=== PATIENT | female | born 1945 | race Two or more races ===

== ENCOUNTER 2021-08-12 08:12 | Outpatient (CLI) | payer OTHER | END 2021-08-12 08:13 | disposition home or self-care (01) | LOC: LAB 08:12 | PROVIDERS: ATTEND Internal Medicine | DX: I34.0 Nonrheumatic mitral (valve) insufficiency (principal); I87.2 Venous insufficiency (chronic) (peripheral); I67.2 Cerebral atherosclerosis ==

== ENCOUNTER 2022-09-05 08:48 | Outpatient (CLI) | payer OTHER | END 2022-09-05 08:49 | disposition home or self-care (01) | LOC: LAB 08:48 | PROVIDERS: ATTEND Internal Medicine | DX: I34.0 Nonrheumatic mitral (valve) insufficiency (principal); I87.2 Venous insufficiency (chronic) (peripheral); I67.2 Cerebral atherosclerosis; I70.213 Atherosclerosis of native arteries of extremities with intermittent claudication, bilateral legs; E78.00 Pure hypercholesterolemia, unspecified; E04.2 Nontoxic multinodular goiter; E03.8 Other specified hypothyroidism; G47.33 Obstructive sleep apnea (adult) (pediatric); R94.5 Abnormal results of liver function studies; K57.30 Diverticulosis of large intestine without perforation or abscess without bleeding; A09 Infectious gastroenteritis and colitis, unspecified; R31.29 Other microscopic hematuria; B00.9 Herpesviral infection, unspecified; M81.0 Age-related osteoporosis without current pathological fracture; M54.50 Low back pain, unspecified; M51.9 Unspecified thoracic, thoracolumbar and lumbosacral intervertebral disc disorder; M51.36 Other intervertebral disc degeneration, lumbar region; M50.30 Other cervical disc degeneration, unspecified cervical region; M41.9 Scoliosis, unspecified; M1A.00X0 Idiopathic chronic gout, unspecified site, without tophus (tophi); M25.571 Pain in right ankle and joints of right foot; M11.29 Other chondrocalcinosis, multiple sites; M67.471 Ganglion, right ankle and foot; M21.611 Bunion of right foot; M06.4 Inflammatory polyarthropathy; R41.3 Other amnesia; L30.9 Dermatitis, unspecified; N60.21 Fibroadenosis of right breast ==

== ENCOUNTER 2023-02-20 07:48 | Outpatient (CLI) | payer OTHER | END 2023-02-20 07:55 | disposition home or self-care (01) | LOC: LAB 07:48 | PROVIDERS: ATTEND Internal Medicine | DX: I34.0 Nonrheumatic mitral (valve) insufficiency (principal); I87.2 Venous insufficiency (chronic) (peripheral); I67.2 Cerebral atherosclerosis; I70.213 Atherosclerosis of native arteries of extremities with intermittent claudication, bilateral legs; E04.2 Nontoxic multinodular goiter; E03.8 Other specified hypothyroidism; G47.33 Obstructive sleep apnea (adult) (pediatric); R94.5 Abnormal results of liver function studies; K57.30 Diverticulosis of large intestine without perforation or abscess without bleeding; A09 Infectious gastroenteritis and colitis, unspecified; R31.29 Other microscopic hematuria; B00.9 Herpesviral infection, unspecified; M81.0 Age-related osteoporosis without current pathological fracture; M51.9 Unspecified thoracic, thoracolumbar and lumbosacral intervertebral disc disorder; M51.36 Other intervertebral disc degeneration, lumbar region; M50.30 Other cervical disc degeneration, unspecified cervical region; M41.9 Scoliosis, unspecified; M1A.00X0 Idiopathic chronic gout, unspecified site, without tophus (tophi); M25.571 Pain in right ankle and joints of right foot; M11.29 Other chondrocalcinosis, multiple sites; M67.471 Ganglion, right ankle and foot; M21.611 Bunion of right foot; M06.4 Inflammatory polyarthropathy; M79.672 Pain in left foot; M72.2 Plantar fascial fibromatosis; M67.879 Other specified disorders of synovium and tendon, unspecified ankle and foot; R41.3 Other amnesia; L30.9 Dermatitis, unspecified; N60.21 Fibroadenosis of right breast; N60.22 Fibroadenosis of left breast; E55.9 Vitamin D deficiency, unspecified; R42 Dizziness and giddiness; Z68.21 Body mass index [BMI] 21.0-21.9, adult; N39.0 Urinary tract infection, site not specified; R73.01 Impaired fasting glucose; E53.8 Deficiency of other specified B group vitamins; Z12.11 Encounter for screening for malignant neoplasm of colon ==

== ENCOUNTER → 2023-02-27 10:43 | Outpatient (CLI) | payer OTHER | END | disposition home or self-care (01) | LOC: LAB 10:43 | PROVIDERS: ATTEND Internal Medicine | DX: Z12.11 Encounter for screening for malignant neoplasm of colon (principal) ==

== ENCOUNTER 2023-07-31 09:15 | Outpatient (CLI) | payer OTHER ==
[2023-07-31 12:42] LABS: HEMATOCRIT 40.7 % (36.0-45.00); HEMOGLOBIN 13.6 g/dL (12.0-15.00); MEAN CELL VOLUME 92.9 fL (80.00-100.00); MEAN CORPUSCULAR HGB CONC 33.4 g/dl (32.0-36.0); PLATELET COUNT 295 K/uL (150-450); RED BLOOD COUNT 4.39 M/uL (4.00-6.00); RED CELL DISTRIBUTION WIDTH 13.9 % (11.5-14.5)
[2023-07-31 12:47] LABS: URINE APPEARANCE Clear; URINE BILIRRUBIN Negative (NEGATIVE); URINE BLOOD Negative; URINE COLOR Yellow; URINE GLUCOSE Negative (NEGATIVE); URINE LEUKOCYTE Negative; URINE NITRATE Negative; URINE PROTEIN Negative (NEGATIVE); URINE UROBILINOGEN 0.2 E.U./dl
[2023-07-31 12:51] LABS: URINE RBC 22.1 uL (0.0-20.8); URINE WBC 2.9 uL (0.0-23.2)
[2023-07-31 13:17] LABS: URINE BACTERIA 3.7 uL (0.0-1933); URINE EPITHELIAL CELLS 0.3 uL (0.0-38.8)
[2023-07-31 13:22] LABS: ALBUMIN 3.9 gm/dL (3.4-5.0); BILIRUBIN TOTAL 0.52 mg/dL (0.3-1.2); CALCIUM 9.7 mg/dL (8.5-10.1); CHOL HDL RATIO 2.1 (0-5.0); CREATININE SERUM 0.82 mg/dL (0.55-1.02); GFR 67.6; GLOBULINA 3.9 G/DL (2.4-3.5); POTASSIUM 4.46 mEq/L (3.5-5.1); TOTAL PROTEIN 7.8 gm/dL (6.4-8.2)
== END 2023-07-31 09:16 | disposition home or self-care (01) ==
LOC: LAB 09:15
PROVIDERS: ATTEND Internal Medicine
DX: I34.0 Nonrheumatic mitral (valve) insufficiency (principal); I87.2 Venous insufficiency (chronic) (peripheral); I67.2 Cerebral atherosclerosis; I70.213 Atherosclerosis of native arteries of extremities with intermittent claudication, bilateral legs; E78.2 Mixed hyperlipidemia; E04.2 Nontoxic multinodular goiter; E03.8 Other specified hypothyroidism; G47.33 Obstructive sleep apnea (adult) (pediatric); R94.5 Abnormal results of liver function studies; K57.30 Diverticulosis of large intestine without perforation or abscess without bleeding; A09 Infectious gastroenteritis and colitis, unspecified; R10.10 Upper abdominal pain, unspecified; R31.29 Other microscopic hematuria; B00.9 Herpesviral infection, unspecified; M81.0 Age-related osteoporosis without current pathological fracture; M51.9 Unspecified thoracic, thoracolumbar and lumbosacral intervertebral disc disorder; M51.36 Other intervertebral disc degeneration, lumbar region; M50.30 Other cervical disc degeneration, unspecified cervical region; M41.9 Scoliosis, unspecified; M1A.00X0 Idiopathic chronic gout, unspecified site, without tophus (tophi); M25.571 Pain in right ankle and joints of right foot; M11.29 Other chondrocalcinosis, multiple sites; M21.611 Bunion of right foot; M06.4 Inflammatory polyarthropathy; M79.672 Pain in left foot; M72.2 Plantar fascial fibromatosis; R41.3 Other amnesia; L30.9 Dermatitis, unspecified; N60.21 Fibroadenosis of right breast; N60.22 Fibroadenosis of left breast; E55.9 Vitamin D deficiency, unspecified; R42 Dizziness and giddiness; Z68.21 Body mass index [BMI] 21.0-21.9, adult; R73.01 Impaired fasting glucose; E53.8 Deficiency of other specified B group vitamins; Z12.11 Encounter for screening for malignant neoplasm of colon

== ENCOUNTER → 2024-09-16 07:27 | Outpatient (CLI) | payer OTHER ==
[2024-09-16 08:58] LABS: HEMATOCRIT 39.7 % (36.0-45.00); HEMOGLOBIN 13.3 g/dL (12.0-15.00); MEAN CELL VOLUME 93.2 fL (80.00-100.00); MEAN CORPUSCULAR HEMOGLOBIN 31.1 pg (27.00-32.0); MEAN CORPUSCULAR HGB CONC 33.4 g/dl (32.0-36.0); PLATELET COUNT 277 K/uL (150-450); RED BLOOD COUNT 4.27 M/uL (4.00-6.00); RED CELL DISTRIBUTION WIDTH 13.6 % (11.5-14.5)
[2024-09-16 09:09] LABS: PH,URINE 6.5 (5.0-8.0); URINE APPEARANCE Clear; URINE BILIRRUBIN Negative (NEGATIVE); URINE BLOOD Negative; URINE COLOR Yellow; URINE GLUCOSE Negative (NEGATIVE); URINE KETONE Negative (NEGATIVE); URINE LEUKOCYTE Negative; URINE NITRATE Negative; URINE PROTEIN Negative (NEGATIVE); URINE UROBILINOGEN 0.2 E.U./dl
[2024-09-16 09:14] LABS: URINE RBC 8.2 uL (0.0-20.8)
[2024-09-16 09:29] LABS: ALBUMIN 3.6 gm/dL (3.4-5.0); BILIRUBIN TOTAL 0.57 mg/dL (0.3-1.2); CALCIUM 9.7 mg/dL (8.5-10.1); CREATININE SERUM 0.74 mg/dL (0.55-1.02); GFR 75.71; GLOBULINA 3.7 G/DL (2.4-3.5); POTASSIUM 4.18 mEq/L (3.5-5.1); TOTAL PROTEIN 7.3 gm/dL (6.4-8.2)
[2024-09-16 09:32] LABS: CHOL HDL RATIO 2.2 (0-5.0); TSH 3.55 uIU/mL (0.358-3.74)
[2024-09-16 09:34] LABS: URINE BACTERIA 2.4 uL (0.0-1933); URINE EPITHELIAL CELLS 0.4 uL (0.0-38.8); URINE WBC 0.3 uL (0.0-23.2)
== END | disposition home or self-care (01) ==
LOC: LAB 07:27
PROVIDERS: ATTEND Internal Medicine
DX: E78.2 Mixed hyperlipidemia (principal); E03.8 Other specified hypothyroidism; I34.0 Nonrheumatic mitral (valve) insufficiency; I36.1 Nonrheumatic tricuspid (valve) insufficiency; I45.10 Unspecified right bundle-branch block; I87.2 Venous insufficiency (chronic) (peripheral); I70.213 Atherosclerosis of native arteries of extremities with intermittent claudication, bilateral legs; I67.82 Cerebral ischemia; E04.2 Nontoxic multinodular goiter; G47.33 Obstructive sleep apnea (adult) (pediatric); H10.45 Other chronic allergic conjunctivitis; H04.123 Dry eye syndrome of bilateral lacrimal glands; H25.13 Age-related nuclear cataract, bilateral; H40.003 Preglaucoma, unspecified, bilateral; R94.5 Abnormal results of liver function studies; H35.363 Drusen (degenerative) of macula, bilateral; H35.033 Hypertensive retinopathy, bilateral; H43.813 Vitreous degeneration, bilateral; K57.30 Diverticulosis of large intestine without perforation or abscess without bleeding; A09 Infectious gastroenteritis and colitis, unspecified; R10.10 Upper abdominal pain, unspecified; R31.29 Other microscopic hematuria; N60.21 Fibroadenosis of right breast; N60.22 Fibroadenosis of left breast; B00.9 Herpesviral infection, unspecified; M81.0 Age-related osteoporosis without current pathological fracture; M51.9 Unspecified thoracic, thoracolumbar and lumbosacral intervertebral disc disorder; M51.369 Other intervertebral disc degeneration, lumbar region without mention of lumbar back pain or lower extremity pain; M50.30 Other cervical disc degeneration, unspecified cervical region; M41.9 Scoliosis, unspecified; M1A.00X0 Idiopathic chronic gout, unspecified site, without tophus (tophi); M25.571 Pain in right ankle and joints of right foot; M11.29 Other chondrocalcinosis, multiple sites; M21.611 Bunion of right foot; M06.4 Inflammatory polyarthropathy; M79.672 Pain in left foot; M72.2 Plantar fascial fibromatosis; R41.3 Other amnesia; L30.9 Dermatitis, unspecified; E55.9 Vitamin D deficiency, unspecified; R42 Dizziness and giddiness; Z68.21 Body mass index [BMI] 21.0-21.9, adult; N39.0 Urinary tract infection, site not specified; R73.01 Impaired fasting glucose; D50.8 Other iron deficiency anemias; D52.9 Folate deficiency anemia, unspecified; Z12.11 Encounter for screening for malignant neoplasm of colon

== ENCOUNTER 2025-02-13 09:48 | Outpatient (CLI) | payer OTHER ==
[2025-02-13 10:56] LABS: URINE APPEARANCE Clear; URINE BILIRRUBIN Negative (NEGATIVE); URINE BLOOD Trace; URINE COLOR Yellow; URINE GLUCOSE Negative (NEGATIVE); URINE KETONE Negative (NEGATIVE); URINE LEUKOCYTE Negative; URINE NITRATE Negative; URINE PROTEIN Negative (NEGATIVE); URINE UROBILINOGEN 0.2 E.U./dl
[2025-02-13 11:00] LABS: URINE BACTERIA 4.8 uL (0.0-1933); URINE RBC 5.5 uL (0.0-20.8)
[2025-02-13 11:10] LABS: BASO % 0.4 % (0.1-1.2); EOS # 0.14 (0.04-0.54); EOS % 1.8 % (0.7-7.0); LYMPH # 1.39 (1.18-3.74); LYMPH % 17.6 % (19.3-53.1); MEAN PLATELET VOLUME 9.50 fl (9.4-12.4); MONO # 0.41 (0.24-0.82); MONO % 5.2 % (4.7-12.5); NEUT # 5.93 (1.56-6.13); NEUT % 74.9 % (34.0-71.1); RED CELL DISTRIBUTION WIDTH 14.0 % (11.6-14.4)
[2025-02-13 11:28] LABS: URINE CAST 0.14 uL (0.0-1.40); URINE EPITHELIAL CELLS 0.7 uL (0.0-38.8); URINE WBC 0.4 uL (0.0-23.2)
[2025-02-13 11:45] LABS: ALT/SGPT 19.0 U/L (12-78); AST/SGOT 17.0 U/L (15-37); BILIRUBIN TOTAL 0.62 mg/dL (0.3-1.2); BUN CREA RATIO 30.0 (7.0-25.0); CHOL HDL RATIO 2.1 (0-5.0); CREATININE SERUM 0.71 mg/dL (0.55-1.02); GFR 79.41; GLOBULINA 3.5 G/DL (2.4-3.5); GLUCOSE FASTING 75.0 mg/dL (65-100); HDL 107.0 mg/dl (40-60); LDL 103.0 mg/dl (0-130); OSMOLALITY SERUM 285.0 MOSM/KG (275-295); T4 FREE 1.0 NG/ML (0.76-1.46); TSH 2.69 uIU/mL (0.358-3.74); VLDL 12.0 (0-39)
== END 2025-02-13 09:58 | disposition home or self-care (01) ==
LOC: LAB 09:48
PROVIDERS: ATTEND Internal Medicine
DX: I34.0 Nonrheumatic mitral (valve) insufficiency (principal); I36.1 Nonrheumatic tricuspid (valve) insufficiency; I45.10 Unspecified right bundle-branch block; I87.2 Venous insufficiency (chronic) (peripheral); I70.213 Atherosclerosis of native arteries of extremities with intermittent claudication, bilateral legs; I67.82 Cerebral ischemia; E78.2 Mixed hyperlipidemia; E04.2 Nontoxic multinodular goiter; E03.8 Other specified hypothyroidism; G47.33 Obstructive sleep apnea (adult) (pediatric); H10.45 Other chronic allergic conjunctivitis; H04.123 Dry eye syndrome of bilateral lacrimal glands; H25.13 Age-related nuclear cataract, bilateral; H40.003 Preglaucoma, unspecified, bilateral; H35.363 Drusen (degenerative) of macula, bilateral; H35.033 Hypertensive retinopathy, bilateral; H43.813 Vitreous degeneration, bilateral; R94.5 Abnormal results of liver function studies; K57.30 Diverticulosis of large intestine without perforation or abscess without bleeding; A09 Infectious gastroenteritis and colitis, unspecified; R10.10 Upper abdominal pain, unspecified; R31.29 Other microscopic hematuria; N60.21 Fibroadenosis of right breast; N60.22 Fibroadenosis of left breast; B00.9 Herpesviral infection, unspecified; M81.0 Age-related osteoporosis without current pathological fracture; M51.9 Unspecified thoracic, thoracolumbar and lumbosacral intervertebral disc disorder; M50.30 Other cervical disc degeneration, unspecified cervical region; M41.9 Scoliosis, unspecified; M1A.00X0 Idiopathic chronic gout, unspecified site, without tophus (tophi); M25.571 Pain in right ankle and joints of right foot; M11.29 Other chondrocalcinosis, multiple sites; M21.611 Bunion of right foot; M06.4 Inflammatory polyarthropathy; M79.672 Pain in left foot; M72.2 Plantar fascial fibromatosis; M25.552 Pain in left hip; R41.3 Other amnesia; L30.9 Dermatitis, unspecified; E55.9 Vitamin D deficiency, unspecified; R42 Dizziness and giddiness; Z68.21 Body mass index [BMI] 21.0-21.9, adult; N39.0 Urinary tract infection, site not specified; R73.01 Impaired fasting glucose; D50.8 Other iron deficiency anemias; D52.9 Folate deficiency anemia, unspecified; Z12.11 Encounter for screening for malignant neoplasm of colon